=== PATIENT | male | born 1980 | race Hispanic/Latino ===

== ENCOUNTER 2024-07-04 21:59 | Day surgery (SDC) | payer OTHER, SELFPAY ==
--- NOTE | ~2024-07-04 | CT_ITS ---
Clinical Indication: Food bolus, left lung airspace opacities CT Scan of the Neck and Chest with Contrast: Technique: Contiguous sections were acquired throughout the neck and chest after intravenous administ ration of 75 cc of Omnipaque 350. Dose reduction technique was used on this scan by utilizing automat ed exposure control and iterative reconstruction technique. The dose-length product (DLP) was 1243.81 mGy-cm. Findings: No soft tissue mass or fluid collection seen in the neck. No lymphadenopathy seen in the ne ck. Parapharyngeal fat preserved bilaterally. Parotid and submandibular glands are unremarkable. Vasc ular structures in the neck enhance normally. Thyroid gland unremarkable. There is no evidence of any significant mediastinal, hilar or axillary lymphadenopathy. There is no f illing defect in the pulmonary arterial tree to suggest pulmonary embolus. There is no evidence of ao rtic dissection or aneurysm. There is esophageal dilatation which is largely fluid-filled, with possi ble impacted food bolus just above the GE junction. There is no evidence of pleural or pericardial effusion. The lungs are clear. No pulmonary nodules or infiltrates are noted. Images through the upper abdomen reveal no abnormalities. Impression: Dilated, fluid-filled esophagus with possible impacted food bolus just above the GE junction. Conside r endoscopy or esophagram as indicated. Clear lungs. Reviewed, dictated and finalized at location M. ICE LIAISON REPRESENTATIVE Impression: Dilated, fluid-filled esophagus with possible impacted food bolus just above th e GE junction. Consider endoscopy or esophagram as indicated. Clear lungs.
--- NOTE | ~2024-07-04 | XR_ITS ---
Portable chest x-ray Comparison: None Clinical History: Food bolus Findings: Lungs are clear, without focal consolidation or pleural effusion. Cardiomediastinal silho uette is unremarkable. Bones and soft tissues are unremarkable. Impression: Normal chest. Reviewed, dictated and finalized at location M. SHOP ATTENDANT Impression: Normal chest.
--- OUTSIDE RECORDS SUMMARY | 2024-07-04 22:01 | XMS_ITS | Clinical Summary ---
Author Organization [facility] betts Address [address] [place] [id number] Phone Care Team Providers Care Inspection Manager Name Role Phone Unavailable Primary Care Provider Unavailabl e Medications Medication Sig Dispensed Refills Start Date End Date Status niacin 500 MG CR capsule 1 tab/cap qday 05/31/2015 Active Active Problems Problem Noted Date Diagnosed Date Other specified abnormal finding of blood chemis try 05/31/2015 Pure hyperglyceridemia 05/31/2015 Immunizations Name Administration Dates Next Due Influenza TIV (IM) 06/02/2015 Family History Medical History Relation Comments Hypertensive disorder Mother Kidney disease Neg Hx Kidney stone Neg Hx Relation Status Comments Mother Social History Tobacco Use Types Packs/Day Years Used Date Smoking Tobacco: Never Assessed Sex and Gender Information Value Date Recorded Sex Assigned at Not on file Gender Identity Not on file Sexual Orientation Not on file Last Filed Vital Signs Vital Sign Reading Time Taken Comments Blood Pressure 122/74 06/02/2015 12:01 AM MATCHBOOK ASSEMBLER Sitting, Right Pulse - - Temperature 36.8 C (98.2 F) 06/02/2015 12:01 AM MATCHBOOK ASSEMBLER Respiratory Rate - - Oxygen Saturation - - Inhaled Oxygen Concentration - - Weight 100 kg (221 lb) 06/02/2015 12:01 AM MATCHBOOK ASSEMBLER Height 170.2 cm (5' 7 ) 06/02/2015 12:0 1 AM MATCHBOOK ASSEMBLER Body Mass Index 34.61 06/02/2015 12:01 AM MATCHBOOK ASSEMBLER Plan of Treatment Not on file
[2024-07-04 22:06] VITALS: BP 145/70; PULSE 99; RESP 16; TEMP 36.4; O2SAT 100
--- NOTE | 2024-07-04 22:10 | PC.NURSE ---
Patient given a carbonated beverage in triage
[2024-07-05] VITALS (12 sets, daily range): BP systolic 127–161; BP diastolic 68–99; PULSE 68–105; RESP 14–28; TEMP 36.6–36.7; O2SAT 94–100; BMI 34.2
--- OUTSIDE RECORDS SUMMARY | 2024-07-05 03:51 | XMS_ITS | Clinical Summary ---
Author Organization [facility] betts Address [address] [place] [id number] Phone Care Team Providers Care Real Estate Representative Name Role Phone Unavailable Primary Care Provider [...] Comments Blood Pressure 122/74 06/02/2015 12:01 AM WEB SEARCH EVALUATOR Sitting, Right Pulse - - Temperature 36.8 C (98.2 F) 06/02/2015 12:01 AM WEB SEARCH EVALUATOR Respiratory Rate - - Oxygen Saturation - - Inhaled Oxygen Concentration - - Weight 100 kg (221 lb) 06/02/2015 12:01 AM WEB SEARCH EVALUATOR Height 170.2 cm (5' 7 ) 06/02/2015 12:0 1 AM WEB SEARCH EVALUATOR Body Mass Index 34.61 06/02/2015 12:01 AM WEB SEARCH EVALUATOR Plan of Treatment Not on file
--- NOTE | 2024-07-05 05:08 | ED.GENADULT ---
HPI - General Adult General Chief complaint: Unspecified Stated complaint: food bolus, unable to drink/eat, nausea, eye swell Time Seen by Provider: 07/05/24 03:41 Source: patient Mode of arrival: ambulatory Limitations: no limitations History of Present Illness HPI narrative: Patient presents with concern for a food bolus. He was eating a braatworst at about 1700 and suddenly experienced symptoms. He has been unable to drink or eat and is feeling nauseated as a result. He also developed bilateral eye swelling but otherwise denies any GI issues, shortness of breath, altered mental status, etc. He states this has happened multiple times previosly but he has always been able to pass it. This time, however, he cannot swallow. He has tried sprite, baking soda, other Sodas, etc. He doesn't actually feel the globus sensation right now but every time he does swallow something, it comes back up so he believes it is at the level of his sternal notch based on where he points. At first he was very nauseated but this is better now. He can breathe and cough. He has been gagging and dry heaving. Although this had happened previously, never worked up before. Has never seen GI. Related Data Home Medications ?Medication ?Instructions ?Recorded ?Confirmed ?Last Taken ?Type No Home Medications 07/05/24 07/05/24 Unknown History Allergies Allergy/AdvReac Type Severity Reaction Status Date / Time No Known Allergies Allergy Mild Verified 07/05/24 08:06 [facility] Past Medical History Medical History (Updated 07/06/24 @ 05:54 by Bindu Ascencio MD) Obesity Family History Family History Grandparent Hypertension Family history of Alzheimer's disease Family history of heart disease in male family member before age 55 Mother Hypertension Social History Social History Smoking status: Former smoker Alcohol intake: current Exam Narrative: GENERAL: Well-appearing, well-nourished, and in no acute distress. HEAD: Normocephalic, atraumatic. EYES: Non injected, non icteric. Periorbital edema. ENT: Nares clear, no rhinorrhea or epistaxis. NECK: Supple. CHEST: Speaking in full sentences. No respiratory distress. Non labored. no bronchospasm/wheeze. HEART: Regular rate and rhythm. . ABDOMEN: Soft, nondistended. EXTREMITIES: Normal range of motion. No lower extremity edema. SKIN: Warm, dry, no rash. Particularly no urticaria or swelling elsewhere besides periorbital. NEURO: No focal deficits. Alert and oriented x3. PSYCH: Normal mood and affect. Course Vital Signs Vital signs: Vital Signs Temperature 97.5 F L 07/04/24 22:06 Pulse Rate 99 07/04/24 22:06 Respiratory Rate 16 07/04/24 22:06 Blood Pressure 145/70 H 07/04/24 22:06 Pulse Oximetry 100 07/04/24 22:06 Oxygen Delivery Room Air 07/04/24 22:06 Temperature 97.8 F 07/05/24 05:22 Pulse Rate 99 07/05/24 11:44 Respiratory Rate 16 07/05/24 11:44 Blood Pressure 160/88 H 07/05/24 11:44 Pulse Oximetry 94 07/05/24 11:44 Oxygen Delivery Room Air 07/05/24 11:44 Medical Decision Making MDM Narrative Medical decision making narrative: Patient presents with concern for food bolus. He doesn't actually have a globus sensation but it happened acutely while eating braatworst at 1700 and ever since he has been unable to swallow anything without it coming back up immediately. Has already trialed Sprite, baking soda, other sodas, etc. This has happened before but all previously spontaenously resolved. Never seen GI. In the emergency department he is afebrile with vital signs notable for hypertension. Patient premedicated with Zofran and then given IV glucagon. Also given famotidine and steroid for what appears to be a possible allergic reaction, possibly to a substance/additive in the braatworst. I did notify GI Dr Lisa while on the phone with him discussing another patient, prior to patient going to CT scan, that he might be needed. Upon CT imaging, Dr Lisa does come down and evaluate the patient and note that he will be taken to OR this morning. Likely discharged home after. Differential Diagnosis Differential Diagnosis: food bolus, stricture, Zenker diverticulum, psychogenic; allergic reaction; considered anaphylaxis; considered elvie syndrome Vital Signs Vital Signs: Vital Signs Temperature 97.5 F L 07/04/24 22:06 Pulse Rate 99 07/04/24 22:06 Respiratory Rate 16 07/04/24 22:06 Blood Pressure 145/70 H 07/04/24 22:06 Pulse Oximetry 100 07/04/24 22:06 Oxygen Delivery Room Air 07/04/24 22:06 Temperature 97.8 F 07/05/24 05:22 Pulse Rate 99 07/05/24 11:44 Respiratory Rate 16 07/05/24 11:44 Blood Pressure 160/88 H 07/05/24 11:44 Pulse Oximetry 94 07/05/24 11:44 Oxygen Delivery Room Air 07/05/24 11:44 Lab Data Lab results reviewed: Yes I reviewed the patient's lab results. Lab results narrative: Mild leukocytosis 07/05/24 05:22 07/05/24 05:22 Labs: Lab Results 07/05/24 Range/Units 05:22 WBC 10.5 H (4.5-10.0) K/mm3 RBC 4.70 (4.6-6.20) M/mm3 Hgb 14.6 (14.0-18.0) g/dL Hct 42.2 (42.0-52.0) % MCV 89.8 (80-100) fl MCH 31.1 (26-34) pg MCHC 34.6 (32-36) g/dl RDW 11.5 (11.5-14.5) % Plt Count 313 (150-375) k/mm3 MPV 9.3 (7.4-10.4) fl Immature Gran % (Auto) 0.2 (0-0.5) % Neut % (Auto) 69.5 (45.5-73.1) % Lymph % (Auto) 20.1 (18.3-44.2) % [place] % (Auto) 7.9 (2.6-8.5) % Eos % (Auto) 1.6 (0-4.4) % Baso % (Auto) 0.7 (0.2-1.2) % Lymph # (Auto) 2.11 (0.9-3.2) K/mm3 [place] # (Auto) 0.8 H (0.1-0.6) K/mm3 Eos # (Auto) 0.2 (0-0.3) K/mm3 Baso # (Auto) 0.1 (0.0-0.1) K/mm3 Abs Immat Gran (auto) 0.02 (0.00-0.031) K/mm3 Absolute Neuts (auto) 7.3 H (1.3-6.7) K/mm3 Absolute Nucleated RBC 0.000 (0.0-0.012) K/mm3 Nucleated RBC % 0.0 (0.0-0.2) % Sodium 142 (137-145) mmol/L Potassium 3.8 (3.4-5.0) mmol/L Chloride 107 (98-107) mmol/L Carbon Dioxide 24 (22-30) mmol/L Anion Gap 11 (4-12) mmol/L BUN 17 (9-20) mg/dL Creatinine 1.03 (0.7-1.3) mg/dL Estim Creat Clear Calc 96 ml/min Estimated GFR > 60 (59 - ) Glucose 109 (65-110) mg/dL Calcium 9.6 (8.4-10.2) mg/dL Imaging Data Attestation: I personally reviewed and interpreted this imaging study as follows: My impression: Left-sided haziness on my independent interpretation of chest x-ray Radiologist's impression: Impressions Chest X-Ray 07/05/24 06:37 Impression: Normal chest. Neck/Chest CT 07/05/24 06:39 Impression: Dilated, fluid-filled esophagus with possible impacted food bolus just above the GE junction. Consider endoscopy or esophagram as indicated. Clear lungs. Discharge Plan Discharge Clinical Impression: Leukocytosis, Food impaction of esophagus Patient Disposition: Still a Patient Condition: Stable
[2024-07-05 05:28] LABS: Basophils Absolute Auto 0.1 K/mm3 (0.0-0.1); Basophils Percent Auto 0.7 % (0.2-1.2); Eosinophils Absolute Auto 0.2 K/mm3 (0-0.3); Eosinophils Percent Auto 1.6 % (0-4.4); Hematocrit 42.2 % (42.0-52.0); Hemoglobin 14.6 g/dL (14.0-18.0); Immature Granulocyte Absolute 0.02 K/mm3 (0.00-0.031); Immature Granulocyte Percent A 0.2 % (0-0.5); Lymphocytes Absolute Auto 2.11 K/mm3 (0.9-3.2); Lymphocytes Percent Auto 20.1 % (18.3-44.2); Mean Corpuscular HGB Conc 34.6 g/dl (32-36); Mean Corpuscular Hemoglobin 31.1 pg (26-34); Mean Corpuscular Volume 89.8 fl (80-100); Mean Platelet Volume 9.3 fl (7.4-10.4); Monocytes Absolute Auto 0.8 K/mm3 (0.1-0.6); Monocytes Percent Auto 7.9 % (2.6-8.5); Neutrophils Absolute Auto 7.3 K/mm3 (1.3-6.7); Neutrophils Percent Auto 69.5 % (45.5-73.1); Platelet Count Result 313 k/mm3 (150-375); Red Cell Distribution Width 11.5 % (11.5-14.5); White Blood Count 10.5 K/mm3 (4.5-10.0)
[2024-07-05] MEDS: GLUCAGON FOR INJ 1 MG VIAL IV PUSH (05:31)
[2024-07-05] MEDS: ONDANSETRON INJ 4 MG/2 ML VIAL IV PUSH (05:35)
[2024-07-05] MEDS: methylPREDNISolone SOD SUCC 125 MG VIAL IV PUSH (05:36)
[2024-07-05] MEDS: FAMOTIDINE 20 MG/2 ML VIAL IV PUSH (05:37)
[2024-07-05 05:38] LABS: Anion Gap 11 mmol/L (4-12); Blood Urea Nitrogen 17 mg/dL (9-20); Calcium 9.6 mg/dL (8.4-10.2); Carbon Dioxide 24 mmol/L (22-30); Chloride 107 mmol/L (98-107); Estimated CRCL calculation 96 ml/min; Estimated Glomerular Filt Rate > 60; Glucose 109 mg/dL (65-110); Potassium 3.8 mmol/L (3.4-5.0); Sodium 142 mmol/L (137-145)
--- OUTSIDE RECORDS SUMMARY | 2024-07-05 07:37 | XMS_ITS | Clinical Summary ---
Author Organization [facility] Izabel betts Address [address] [place] [id number] Phone Care Team Providers Care Shellacker Name Role Phone Unavailable Primary Care Provider [...] Comments Blood Pressure 122/74 06/02/2015 12:01 AM APPRENTICE STYLIST Sitting, Right Pulse - - Temperature 36.8 C (98.2 F) 06/02/2015 12:01 AM APPRENTICE STYLIST Respiratory Rate - - Oxygen Saturation - - Inhaled Oxygen Concentration - - Weight 100 kg (221 lb) 06/02/2015 12:01 AM APPRENTICE STYLIST Height 170.2 cm (5' 7 ) 06/02/2015 12:0 1 AM APPRENTICE STYLIST Body Mass Index 34.61 06/02/2015 12:01 AM APPRENTICE STYLIST Plan of Treatment Not on file
--- NOTE | 2024-07-05 08:11 | WPDANESEPPF ---
Anes - Initial Pre Proc Eval Procedure: Operation Date: 07/05/24 10:30 Proposed Procedures p Esophagogastroduodenoscopy - Les Lisa MD Date/Time: 07/05/24 08:11 Surgeon: Les Lisa MD Pre Op Diagnosis: food bolus, unable to drink/eat, nausea, eye swell Patient Data Age: 43 Gender: M Height: 1.73 m Weight: 102 kg Last Vital Signs Temp 36.6 C 07/05/24 05:22 Pulse 96 07/05/24 07:45 Resp 18 07/05/24 07:45 BP 151/89 H 07/05/24 07:45 Pulse Ox 100 07/05/24 07:45 O2 Del Method Room Air 07/04/24 22:06 Allergies Allergy/AdvReac Type Severity Reaction Status Date / Time No Known Allergies Allergy Mild Verified 07/05/24 08:06 Home Medications ?Medication ?Instructions ?Recorded ?Confirmed ?Type No Home Medications 07/05/24 07/05/24 History Laboratory Tests 07/05/24 05:22 WBC 10.5 H K/mm3 (4.5-10.0) RBC 4.70 M/mm3 (4.6-6.20) Hgb 14.6 g/dL (14.0-18.0) Hct 42.2 % (42.0-52.0) MCV 89.8 fl (80-100) MCH 31.1 pg (26-34) MCHC 34.6 g/dl (32-36) RDW 11.5 % (11.5-14.5) Plt Count 313 k/mm3 (150-375) MPV 9.3 fl (7.4-10.4) Immature Gran % (Auto) 0.2 % (0-0.5) Neut % (Auto) 69.5 % (45.5-73.1) Lymph % (Auto) 20.1 % (18.3-44.2) [place] % (Auto) 7.9 % (2.6-8.5) Eos % (Auto) 1.6 % (0-4.4) Baso % (Auto) 0.7 % (0.2-1.2) Lymph # (Auto) 2.11 K/mm3 (0.9-3.2) [place] # (Auto) 0.8 H K/mm3 (0.1-0.6) Eos # (Auto) 0.2 K/mm3 (0-0.3) Baso # (Auto) 0.1 K/mm3 (0.0-0.1) Abs Immat Gran (auto) 0.02 K/mm3 (0.00-0.031) Absolute Neuts (auto) 7.3 H K/mm3 (1.3-6.7) Absolute Nucleated RBC 0.000 K/mm3 (0.0-0.012) Nucleated RBC % 0.0 % (0.0-0.2) Sodium 142 mmol/L (137-145) Potassium 3.8 mmol/L (3.4-5.0) Chloride 107 mmol/L (98-107) Carbon Dioxide 24 mmol/L (22-30) Anion Gap 11 mmol/L (4-12) BUN 17 mg/dL (9-20) Creatinine 1.03 mg/dL (0.7-1.3) Estim Creat Clear Calc 96 ml/min Estimated GFR > 60 (59 - ) Glucose 109 mg/dL (65-110) Calcium 9.6 mg/dL (8.4-10.2) Patient hx anesthesia problems: none Family hx anesthesia problems: none Results Review: All pre-operative results and documents have been reviewed as part of the pre-operative evaluation. [facility] Past Medical History Medical History (Updated 07/05/24 @ 08:11 by Elijah Anderson MD) Obesity Family History Family History Grandparent Hypertension Family history of Alzheimer's disease Family history of heart disease in male family member before age 55 Mother Hypertension Social History Social History Smoking status: Former smoker Alcohol intake: current Anes - Eval Final PreProcedure Day of Procedure 07/05/24 08:11 Patient weight: obese Heart: regular rate and rhythm Lungs: clear to auscultation Airway: Mallampati scale class 1 Neurological: alert and oriented Last oral intake: >/= 8 hours ASA classification: II Emergent: no Anesthetic plan: proceed Anesthesia type and monitoring: general ETT and standard monitoring Results Review: All pre-operative results and documents have been reviewed as part of the pre-operative evaluation. Informed Consent: The patient's anesthetic plan and its attendant risks and benefits were discussed with the patient/family/POA. Questions were solicited and answers provided to the satisfaction of the patient/family/POA.
[2024-07-05] MEDS: LACTATED RINGERS 1,000 ML 150 ML IV CONT (10:40)
--- NOTE | 2024-07-05 10:43 | PM.IMHP ---
H&P: HPI History of Present Illness Date/Time: 07/05/24 10:43 Chief Complaint: Dysphagia-food bolus impaction Narrative: the patient has experienced intermittent dysphagia for the past 5 years, almost exclusively to solid food. Last night after eating sausage he felt he could not swallow anymore liquids or solids or even saliva. He is here for EGD and food bolus impaction treatment. Review of Systems Review of Systems: All systems reviewed & are unremarkable except as noted in HPI and below PMFSH Past Medical History Medical History (Updated 07/05/24 @ 10:45 by Les Lisa MD) Obesity Family History Family History Grandparent Hypertension Family history of Alzheimer's disease Family history of heart disease in male family member before age 55 Mother Hypertension Social History Social History Smoking status: Former smoker Alcohol intake: current Meds Home Medications and Allergies Home Medications ?Medication ?Instructions ?Recorded ?Confirmed ?Type No Home Medications 07/05/24 07/05/24 History Allergies Allergy/AdvReac Type Severity Reaction Status Date / Time No Known Allergies Allergy Mild Verified 07/05/24 08:06 Vital Signs Vital Signs - 24 hr 07/04/24 22:06 07/05/24 03:58 07/05/24 03:59 Temperature 97.5 F L 98.1 F Pulse Rate 99 84 Respiratory Rate 16 16 16 Blood Pressure 145/70 H 145/88 H Pulse Oximetry 100 100 98 Oxygen Delivery Room Air 07/05/24 05:22 07/05/24 07:22 07/05/24 07:45 Temperature 97.8 F Pulse Rate 68 91 96 Respiratory Rate 14 16 18 Blood Pressure 132/68 127/68 151/89 H Pulse Oximetry 98 98 100 Oxygen Delivery Exam Const: General: cooperative and healthy appearing Resp: Effort & Inspection: normal respiratory effort and able to speak in complete sentences Auscultation: clear to auscultation bilaterally Cardio: Rate: regular rate Rhythm: regular rhythm GI: Inspection: normal to inspection GI Palp: No No hepatosplenomegaly present Auscultation: normal bowel sounds Rectal Exam: deferred Skin: General skin exam: normal color Psych: Appearance: grossly normal Mental Status: mental status grossly normal H&P: Results Labs Labs: Short CBC 07/05/24 Range/Units 05:22 WBC 10.5 H (4.5-10.0) K/mm3 Hgb 14.6 (14.0-18.0) g/dL Hct 42.2 (42.0-52.0) % Plt Count 313 (150-375) k/mm3 BMP 07/05/24 05:22 Sodium 142 Potassium 3.8 Chloride 107 Carbon Dioxide 24 BUN 17 Creatinine 1.03 Glucose 109 Calcium 9.6 Assessment and Plan Assessment and plan (1) Food impaction of esophagus: Code(s): T18.128A - Food in esophagus causing other injury, initial encounter; W44.F3XA - Food entering into or through a natural orifice, initial encounter Status: Acute Assessment and Plan: The patient is deemed a good candidate for the procedure. Consent signed. Will proceed.
== END 2024-07-05 11:54 | disposition home or self-care (01) ==
LOC: ANHED 07-05 03:50 → ANHENDO 07-05 07:34
PROVIDERS: Emergency Provider Student in an Organized Health Care Education/Training Program; Visit Provider Internal Medicine Gastroenterology
PROC: 0DJ08ZZ Inspection of Upper Intestinal Tract, Via Natural or Artificial Opening Endoscopic (ICD-10-PCS; CPT 43247; principal; 2024-07-05 10:30)
DX: T18.128A Food in esophagus causing other injury, initial encounter (principal); D72.829 Elevated white blood cell count, unspecified; K21.00 Gastro-esophageal reflux disease with esophagitis, without bleeding; W44.F3XA Food entering into or through a natural orifice, initial encounter; Z87.891 Personal history of nicotine dependence; E66.9 Obesity, unspecified; Z68.34 Body mass index [BMI] 34.0-34.9, adult
CPT/HCPCS: 43247; 43239; 36415; 70491; 71045; 71260; 80048; 85025; 88305; 96374; 96375; 99285; J0330; J1610; J2003; J2405; J2704; J2919; J7120; Q9967